=== PATIENT | female | born 1970 | race Hispanic/Latino ===

== ENCOUNTER → 2024-04-11 | Outpatient (CLI) | payer BC ==
[2024-04-11 22:27] VITALS: PULSE 68; RESP 12
[2024-04-11 23:01] VITALS: PULSE 77; RESP 16
[2024-04-11 23:34] VITALS: PULSE 73; RESP 14
[2024-04-12] VITALS (12 sets, daily range): PULSE 54–74; RESP 10–20
== END | disposition home or self-care (01) ==
LOC: SLP 20:46
PROVIDERS: ATTEND Nurse Practitioner Family
DX: G47.33 Obstructive sleep apnea (adult) (pediatric) (principal); R07.9 Chest pain, unspecified; R06.00 Dyspnea, unspecified; R06.83 Snoring
CPT/HCPCS: 95810